=== PATIENT | female | born 1950 | race African-American/Black ===

== ENCOUNTER 2016-07-23 11:57 | Inpatient (IN) ==
--- NOTE | 2016-07-23 13:16 | Emergency Department Note ---
Arrival - Arrival Chief Complaint: Weakness Stated Complaint: weakness/unsteady gait ED Nursing Triage Note: pt to triage via wc with c/o having weakness to right leg. pt states onset this am around 0800. pt states her bp was elevated and she took her bp med and then right after she began to have weakness to right leg. Mode of Arrival: Wheelchair Limitations: No Limitations Source: Patient Time Seen by Provider: 07/23/16 12:43 - History of Present Illness HPI Narrative: 65 yo black female presents to ED with c/o right sided weakness x 5 hours. 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 She took Clonidine 0.1mg initially and symptoms improved. When they started again, she took another Clonidine, with no resolution of symptoms, so she came to ER. Onset (ago): hour(s) (five) Consistency: constant Date of Last Menstrual Period: post menopausal Allergies/Adverse Reactions: Allergies Allergy/AdvReac Type Severity Reaction Status Date / Time codeine Allergy Severe ITCHING Verified 08/24/15 09:51 meperidine [From Demerol] Allergy Severe ITCHING Verified 08/24/15 09:51 Zolpidem [From Ambien] Allergy Severe Hallucinati Verified 08/24/15 09:51 ng Home Medications: Home Medications Medication Instructions Recorded Confirmed Type Clorazepate [Tranxene] 3.75 mg PO BID 07/23/16 07/23/16 History Estradiol [Estradiol Tab] 0.5 mg PO DAILY 07/23/16 07/23/16 History Magnesium Oxide [Magnesium] 400 mg PO DAILY 07/23/16 07/23/16 History Methocarbamol Tab [Robaxin Tab] 750 mg PO TID 07/23/16 07/23/16 History Omeprazole [Prilosec] 20 mg PO DAILY 07/23/16 07/23/16 History Potassium Chloride 20 meq PO BID 07/23/16 07/23/16 History Valsartan/Hydrochlorothiazide 1 each PO DAILY 07/23/16 07/23/16 History [Diovan Hct 320-25 mg Tablet] Review of System - Review of System 12 point system: reviewed and no additional remarkable complaints except as stated - Review of System Constitutional: Present: weakness (right side) Eyes: Present: pain Cardiovascular: Present: other (murmur) Neurological: Present: weakness (right side), abnormal gait, other (unable to write correctly) Medical,Surgical,& Family Hx - Medical History Cardio: History of: Hypertension (+ heart murmur ) Psychological: History of: Anxiety Disorders Gastrointestinal: History of: GERD - Social History Smoking Status: Never smoker Frequency of Alcohol Use: None Type of Drug Use: None Exam Vital Signs: Vital Signs Temperature 97.5 F L 07/23/16 12:05 Pulse Rate 54 L 07/23/16 12:05 Respiratory Rate 17 07/23/16 12:05 Blood Pressure 142/81 07/23/16 12:05 O2 Sat by Pulse Oximetry 97 07/23/16 12:05 - General General appearance: alert, anxious - Head Head exam: Present: atraumatic, normocephalic - Eye Eye exam: Present: EOMI, other (pupils unequal/sluggish response from left) - ENT ENT exam: Present: normal exam - Neck Neck exam: Present: normal inspection, full ROM - Chest Chest inspection: Present: normal inspection, symmetric chest wall rise - Respiratory Respiratory exam: Present: normal lung sounds bilaterally - Cardiovascular Cardiovascular exam: Present: regular rate, normal rhythm, murmur - Abdominal Exam Abdominal exam: Present: soft, normal bowel sounds - Extremities Exam Extremities exam: Present: normal inspection, normal capillary refill, other ( weakness of right upper and lower extremity, abnormal gait, abnormal handwriting ) - Back Exam Back exam: Present: normal inspection - Neurological Exam Neurological exam: Present: alert, oriented X3, CN II-XII intact. Absent: normal gait - Expanded Neurological Exam Cranial nerves: EOM function (II, III, IV, ): Normal, facial sensation (V): Normal, facial palsy (VII): Normal, spinal accessory function (XI): Normal, tongue deviation (XII): Normal Cerebellar function: finger to nose: Normal, heel to staples: Abnormal Right Cerebellar function: ataxic gait Motor strength - LUE: 5/5 Motor strength - RUE: 4/5 Motor strength - LLE: 5/5 Motor strength - RLE: 4/5 - Psychiatric Psychiatric exam: Present: anxious - Skin Skin exam: Present: warm, dry, intact Course - Reevaluation(s) Time: 14:30 (symptoms resolved) - Consultations Time: 15:00 (hospitalist service consulted-[place]) Results - Labs CBC & BMP: 07/23/16 13:23 07/23/16 13:23 - Diagnostic Findings Procedure: CT: report reviewed by me (negative) Disposition Clinical Impression: TIA (transient ischemic attack) Case discussed with: patient Disposition: Disch/Xfer-[facility]
[2016-07-23] MEDS: SODIUM CHLORIDE 0.9% 1,000 ML IV SCH (13:40)
[2016-07-23 13:42] LABS: Basophils # 0.1 10*3/uL (0.0-0.2); Eosinophils # 0.3 10*3/uL (0.0-0.87); Eosinophils % 3.6 % (0.00-10.9); Hematocrit 31.8 VOL% (35.7-47.0); Hemoglobin 10.7 GM/DL (12.0-16.0); Immature Granulocytes % 0.3 %; Immature Granulocytes Absolute 0.02 #; Lymphocytes # 2.2 10*3/uL (1.4-4.0); Lymphocytes % 31.6 % (21.3-54.2); Mean Corpuscular HGB Conc 33.6 GM/DL (32-36); Mean Corpuscular Hemoglobin 30 PG (27-34); Mean Corpuscular Volume 90.3 FL (87-102); Monocytes # 0.5 10*3/uL (0.11-0.8); Monocytes % 7.9 % (1.7-12.7); Neutrophils # 3.8 10*3/uL (1.4-7.4); Neutrophils % 55.6 % (38.7-73.9); Platelet Count 167 T/CUMM (130-400); Red Blood Count 3.52 MC/CUMM (3.8-5.5); Red Cell Distribution Width 11.5 % (9.3-17.3); White Blood Count 6.9 T/CUMM (4-12)
--- NOTE | 2016-07-23 13:47 | CT Report ---
Referring physician: Joie Calabrese NP Exam: CT brain without contrast Date: 07/23/2016 Comparison: MRI brain 07/08/2015 Reason: Right side weakness Technique: Axial images of the head were obtained without the use of contrast. Total DLP was 914.60 mGy*cm. Findings: No hydrocephalus or midline shift is present. There is no evidence of an acute infarction, recent intracranial hemorrhage or abnormal mass effect. The osseous structures appear intact. The mastoid air cells and visualized paranasal sinuses are clear. Impression: No acute intracranial abnormality is identified. The CT exam was performed using one or more of the following dose reduction techniques: Automated exposure control and adjustment of the mA and/or kV according to patient size. PROCEDURE INTERPRETED AT [facility] DEPARTMENT OF RADIOLOGY Final Report Signed by: Dr. Nika Penny
[2016-07-23 13:52] LABS: Barbiturates Screen,Urine Negative (Negative); Benzodiazepines Screen,Urine Positive (Negative); Cannabinoid Screen,Urine Negative (Negative); Opiate Screen,Urine Positive (Negative); Phencyclidine Screen,Urine Negative (Negative)
[2016-07-23 14:07] LABS: Calcium 8.7 MG/DL (8.5-10.1); Osmolality,Calculated 288.7 MOS/KG (273-304); Potassium 3.7 MMOL/L (3.5-5.1)
[2016-07-23 14:11] LABS: Cholesterol 210 MG/DL (50-200); HDL Cholesterol 78 MG/DL (40-60); Risk Ratio 2.69; Triglycerides 106 MG/DL (2-150); Troponin I Only < 0.015 NG/ML (0.00-0.045); VLDL CHOLESTEROL 21.2 MG/DL
--- NOTE | 2016-07-23 14:39 | XRay Report ---
XR chest 1V Indication: Possible stroke/TIA Comparison: None Technique: Single frontal view of the chest Findings: Heart size appears within normal limits. No focal consolidation, pleural effusion, or pneumothorax. Osseous and surrounding soft tissue structures demonstrate no acute abnormality. IMPRESSION: No acute cardiopulmonary process demonstrated. PROCEDURE INTERPRETED AT [facility] DEPARTMENT OF RADIOLOGY Final Report Signed by: Dr Uriel Escamilla
--- NOTE | 2016-07-23 15:36 | Hospitalist History & Physical ---
<Payton Esqueda - Last Filed: 07/23/16 15:31> Assessment and Plan - Time spent with patient Time spent with patient: Less than 30 minutes (1) TIA (transient ischemic attack) Status: Acute Assessment and plan: 65-year-old -[place] female admitted by hospital medicine with possible TIA. We will keep her overnight for further evaluation. Will give IV fluids and monitor her symptoms. Further recs to follow per Dr. Ricci Current Visit: Yes (2) Hypertension Status: Acute Current Visit: Yes History of Present Illness Chief complaint: Right-sided weakness History of present illness: Ms. Dubon is a 65 year old -[place] with history of hypertension female presented to the ED with right-sided weakness. Patient states she was at work this morning and she started to feel "funny". She said that her right arm and right leg felt heavy and a coworker took her blood pressure and it was 180/96. She takes clonidine every day and so she took an extra dose and the symptoms seemed to resolve. Patient states a few hours later she got the same heavy feeling on the right side and her coworkers made her come to the emergency room. Patient states all of the symptoms have now resolved. She denies headache, dizziness, shortness of breath, chest pain, abdominal pain, or lower extremity swelling. Her workup is showing relatively normal labs and a negative CT. Upon exam, patient is neurologically intact at this time with equal strength and sensation bilateral. Patient sees Dr. Palmer for her hypertension and Dr. Porter follows her for a heart murmur. She also is a pain patient of Dr. Chavez's for a bulging disc in her lower back. She does take a half [place] and Tranxene on an as needed basis. Hospitalist has been asked to admit for further evaluation. Home Medications Medication Instructions Recorded Confirmed Type Clorazepate [Tranxene] 3.75 mg PO BID 07/23/16 07/23/16 History Estradiol [Estradiol Tab] 0.5 mg PO DAILY 07/23/16 07/23/16 History Magnesium Oxide [Magnesium] 400 mg PO DAILY 07/23/16 07/23/16 History Methocarbamol Tab [Robaxin Tab] 750 mg PO TID 07/23/16 07/23/16 History Omeprazole [Prilosec] 20 mg PO DAILY 07/23/16 07/23/16 History Potassium Chloride 20 meq PO BID 07/23/16 07/23/16 History Valsartan/Hydrochlorothiazide 1 each PO DAILY 07/23/16 07/23/16 History [Diovan Hct 320-25 mg Tablet] Allergies Allergy/AdvReac Type Severity Reaction Status Date / Time codeine Allergy Severe ITCHING Verified 08/24/15 09:51 meperidine [From Demerol] Allergy Severe ITCHING Verified 08/24/15 09:51 Zolpidem [From Ambien] Allergy Severe Hallucinati Verified 08/24/15 09:51 ng Medical,Surgical,& Family Hx - Medical History Cardio: History of: Hypertension (+ heart murmur ) Psychological: History of: Anxiety Disorders Gastrointestinal: History of: GERD - Social History Smoking Status: Never smoker Frequency of Alcohol Use: None Type of Drug Use: None Review of systems: A complete 10 system review of systems was obtained and pertinent positives and negatives are in HPI Exam - Constitutional Vitals: Period Temp Pulse Resp BP Sys/Lange Pulse Ox Last 24 Hr 97.5 F-97.5 F 54-54 - 142-142/81-81 97 Exam: Constitutional System: No distress. No tremulousness. Head: Normocephalic, atraumatic. Ears, Nose and Throat System: No evidence of Otitis or Mastoiditis. No epistaxis or discharge Eyes System: Pupils equal, round, and reactive. Extraocular muscles intact. Neck: Supple, without adenopathy, No jugular venous distention. No thyromegaly, neck mass, or prior surgery apparent. No bruit noted Respiratory System: Chest clear to auscultation. Cardiovascular System: Heart with regular rate and rhythm. 1 to 2/6 murmur. GI System: Abdomen soft, nontender. Normo active bowel sounds present. Musculoskeletal System: limbs with no pedal edema. Full distal pulses. Neurological System: No discernable sensory deficit. No aphasia Psychiatric System: Conversation is rational Results - Labs CBC & BMP: 07/23/16 13:23 07/23/16 13:23 Lab Results: I have reviewed the past 24 hour labs - Diagnostic Findings Procedure: CT: report reviewed by me (No acute process) <Luis Eduardo Ricci - Last Filed: 07/23/16 19:04> History of Present Illness History of present illness: Ms. Dubon is a 65 year old female Exam - Constitutional Vitals: Period Temp Pulse Resp BP Sys/Lange Pulse Ox Last 24 Hr 97.5 F 44-46 18-19 146-153/86-92 97 Results - Labs CBC & BMP: 07/23/16 13:23 07/23/16 13:23
[2016-07-23] MEDS ORDERED: ENOXAPARIN 40 MG/0.4 ML SYRINGE SUBCUT SCH (18:10)
[2016-07-23] MEDS ORDERED: ONDANSETRON 4 MG/2 ML VIAL IV PRN (18:10)
[2016-07-23] MEDS: PANTOPRAZOLE 40 MG TABLET PO SCH (19:03)
[2016-07-23] MEDS ORDERED: NIFEdipine 10 MG CAPSULE PO PRN (19:07)
[2016-07-23] MEDS: METHOCARBAMOL 750 MG TABLET PO SCH (20:47)
[2016-07-23] MEDS: POTASSIUM CHLORIDE 20 MEQ TABLET PO SCH (20:47)
[2016-07-23] MEDS: CLORAZEPATE 3.75 MG TABLET PO SCH (20:48)
[2016-07-24] MEDS: SODIUM CHLORIDE 0.9% 1,000 ML IV SCH (06:53)
[2016-07-24 07:24] LABS: Basophils # 0.1 10*3/uL (0.0-0.2); Basophils % 0.8 % (0.0-0.8); Eosinophils # 0.2 10*3/uL (0.0-0.87); Eosinophils % 3.5 % (0.00-10.9); Hematocrit 30.9 VOL% (35.7-47.0); Hemoglobin 10.4 GM/DL (12.0-16.0); Immature Granulocytes % 0.5 %; Immature Granulocytes Absolute 0.03 #; Lymphocytes % 32.6 % (21.3-54.2); Mean Corpuscular HGB Conc 33.7 GM/DL (32-36); Mean Corpuscular Hemoglobin 30 PG (27-34); Mean Platelet Volume 11.5 FL (9.6-12.0); Monocytes # 0.5 10*3/uL (0.11-0.8); Neutrophils # 3.4 10*3/uL (1.4-7.4); Neutrophils % 54.6 % (38.7-73.9); Platelet Count 153 T/CUMM (130-400); Red Blood Count 3.51 MC/CUMM (3.8-5.5); Red Cell Distribution Width 11.6 % (9.3-17.3); White Blood Count 6.3 T/CUMM (4-12)
[2016-07-24 08:02] LABS: Albumin 3.6 G/DL (3.4-5.0); Bilirubin,Total 1.1 MG/DL (0.2-1.0); Calcium 9.2 MG/DL (8.5-10.1); Magnesium 2.1 MG/DL (1.8-2.4); Osmolality,Calculated 290.6 MOS/KG (273-304); Potassium 3.9 MMOL/L (3.5-5.1); Total Protein 6.6 G/DL (6.4-8.3)
[2016-07-24] MEDS: POTASSIUM CHLORIDE 20 MEQ TABLET PO SCH ×2 (09:08→20:21)
[2016-07-24] MEDS: ESTRADIOL 1 MG TABLET PO SCH (09:08)
[2016-07-24] MEDS: MAGNESIUM OXIDE 400 MG TABLET PO SCH (09:08)
[2016-07-24] MEDS: PANTOPRAZOLE 40 MG TABLET PO SCH (09:08)
[2016-07-24] MEDS: CLORAZEPATE 3.75 MG TABLET PO SCH ×2 (09:08→20:22)
[2016-07-24] MEDS: VALSARTAN/HCTZ 160-12.5 MG TABLET PO SCH (09:08)
[2016-07-24] MEDS: METHOCARBAMOL 750 MG TABLET PO SCH ×3 (09:08→20:21)
--- NOTE | 2016-07-24 11:43 | Magnetic Resonance Report ---
MRI brain without and with contrast Indication: Right lower extremity weakness Comparison: None available Technique: Axial sagittal and coronal imaging of the brain is performed without and with intravenous contrast. T1, T2, FLAIR and diffusion weighted sequences are performed. Contrast dose is 15 cc [place]. Findings: Faint restricted diffusion is seen in the left periventricular white matter slightly posterior. This has minimal signal changes on the T2-weighted sequences. No other evidence of restricted diffusion seen. No evidence of intracranial hemorrhage, mass, mass effect or midline shift is seen. The brain parenchyma has normal signal and differentiation. The ventricles and cisterns are appropriate in caliber. Posterior fossa, mid brain and pituitary gland appear within normal limits. No evidence of cranial or skull base abnormality seen. No areas of abnormal enhancement are present on the postcontrast images when compared to the precontrast study Impression: Suggestion of faint restricted diffusion in the left periventricular white matter with minimal changes on the T2-weighted sequences, could indicate small infarct. PROCEDURE INTERPRETED AT [facility] DEPARTMENT OF RADIOLOGY Final Report Signed by: Dr. Chuckie Murillo
--- NOTE | 2016-07-24 14:12 | Neurology Consult Note ---
History of Present Illness History of present illness: Ms. Dubon is a 65 year old right-handed -[place] lady with history of hypertension, chronic lower back pain presented to the ED with sudden onset of right-sided weakness. Patient states she was at work yesterday morning and she started to feel "funny". She said that her right arm and right leg felt heavy and a coworker took her blood pressure and it was 180/96. She takes clonidine every day and so she took an extra dose and the symptoms seemed to resolve. Patient states a few hours later she got the same heavy feeling on the right side and her coworkers made her come to the emergency room. Patient states all of the symptoms have now resolved. She denies headache, dizziness, shortness of breath, chest pain, abdominal pain, or lower extremity swelling. Patient sees Dr. Palmer for her hypertension and Dr. Porter follows her for a heart murmur. She also is a pain patient of Dr. Chavez'ede for a bulging disc in her lower back. She does take a half [place] and Tranxene on an as needed basis. MRI of the brain revealed a small acute subcortical lacunar infarct in the left. She has slightly abnormal lipid panel. Home Medications Medication Instructions Recorded Confirmed Type Clorazepate [Tranxene] 3.75 mg PO BID 07/23/16 07/23/16 History Estradiol [Estradiol Tab] 0.5 mg PO DAILY 07/23/16 07/23/16 History Magnesium Oxide [Magnesium] 400 mg PO DAILY 07/23/16 07/23/16 History Methocarbamol Tab [Robaxin Tab] 750 mg PO TID 07/23/16 07/23/16 History Omeprazole [Prilosec] 20 mg PO DAILY 07/23/16 07/23/16 History Potassium Chloride 20 meq PO BID 07/23/16 07/23/16 History Valsartan/Hydrochlorothiazide 1 each PO DAILY 07/23/16 07/23/16 History [Diovan Hct 320-25 mg Tablet] Allergies Allergy/AdvReac Type Severity Reaction Status Date / Time codeine Allergy Severe ITCHING Verified 08/24/15 09:51 meperidine [From Demerol] Allergy Severe ITCHING Verified 08/24/15 09:51 Zolpidem [From Ambien] Allergy Severe Hallucinati Verified 08/24/15 09:51 ng 12 point system: reviewed and no additional remarkable complaints except as stated Medical,Surgical,& Family Hx - Medical History Cardio: History of: Hypertension (+ heart murmur ) Psychological: History of: Anxiety Disorders Gastrointestinal: History of: GERD, GI Problems (IBS) Musculoskeletal: Comment Only: Musculoskeletal Problems ([place]) - Surgical History Thoracic Surgeries: Patient denies;: Lobectomy Abdominal Surgeries: Patient denies: Abdominal Surgery, Appendectomy, Cholecystectomy, Colonoscopy , Gastric Bypass Surgery, EGD, Hernia Repair - Family History Family History: Denies;: Family Anesthesia Reaction, Family Cancer, Family Diabetes, Family Heart Disease, Family Hematology, Family Hypertension, Family Psychiatric Problems, Family Stroke - Social History Smoking Status: Never smoker Frequency of Alcohol Use: None Type of Drug Use: None Exam - Constitutional Vitals: Period Temp Pulse Resp BP Sys/Lange Pulse Ox Last 24 Hr 97.4 F-98.8 F 44-60 16-19 127-153/68-92 97-100 Exam: GENERAL: Patient is in no acute distress. NECK: Neck is supple. There is no JVD. No carotid bruits present. No thyroid masses. CVS: First and second heart sounds are normal. There is no S3 present. Regular rate and rhythm. RESPIRATORY: Lungs are clear to auscultation without any rales or rhonchi. ABDOMEN: Soft and non-tender. Bowel sounds are present. There is no hepatosplenomegaly. EXT: There is no palpable edema. Peripheral pulses are present. Skin: No rashes Central Nervous system: General: Alert, awake and Oriented x 3 Speech: Fluent Comprehension: Intact and normal Facial expressions: Normal Cranial Nerves: CN1/Olfactory: Normal CN II/ Optic: Normal, Visual Barrera unreliable CN III, and : SCARLET & EOMI CN V: Normal & intact CN VII: face is symmetric CNVIII: Normal CN XI/X/XI/XII: Intact and Normal Motor: Bulk and Tone is normal. Strength in the right 4+/5 Strength in the left 5/5 Sensory: Decreased for all the modalities of PP, LT and temp sense Reflexes: 1+ and symmetrical Cerebellar function: Normal finger to nose and heel to staples testing. Toes: Equivocal Gait: Normal heel to heel and toe to toe and tandem walk. Results - Labs CBC & BMP: 07/24/16 06:55 07/24/16 06:55 Assessment and Plan (1) Acute CVA (cerebrovascular accident) Status: Acute Assessment and plan: Start and continue aspirin 325 mg p.o. daily Carotid ultrasound Echo PT and OT Start and continue Prozac 20 mg p.o. daily Current Visit: Yes (2) Hyperlipidemia Status: Acute Assessment and plan: Crestor 10 mg p.o. daily Current Visit: Yes (3) Hypertension Status: Chronic Assessment and plan: Continue current medications. Check vitals per routine Current Visit: Yes
[2016-07-24] MEDS: FLUoxetine 20 MG CAPSULE PO SCH (14:46)
[2016-07-24] MEDS: ASPIRIN EC 325 MG TABLET PO SCH (14:47)
--- NOTE | 2016-07-24 15:08 | Hospitalist Progress Note ---
Assessment and Plan (1) Acute CVA (cerebrovascular accident) Status: Acute Assessment and plan: The patient has a small lacunar infarction probably on account of atherosclerosis. Dr. Manpreet Ross has recommended aspirin Prozac and Crestor. Will check carotid Doppler and echocardiogram. Anticipate discharge home in the morning. Current Visit: Yes (2) Hypertension Status: Chronic Current Visit: Yes Qualifiers: Hypertension type: essential hypertension Qualified Code(s): I10 - Essential (primary) hypertension (3) Hyperlipidemia Status: Acute Current Visit: Yes Qualifiers: Hyperlipidemia type: mixed hyperlipidemia Qualified Code(s): E78.2 - Mixed hyperlipidemia Hospitalist: Subjective Interval history: The patient is more fluent today and her gait disturbance is less pronounced. She appears to have had a s lacunar infarct which might be on account of her underlying hypertension. Dr. Manpreet Ross has recommended that she take aspirin Prozac and Crestor. Exam - Constitutional Vitals: Period Temp Pulse Resp BP Sys/Lange Pulse Ox Last 24 Hr 97.4 F-98.8 F 44-60 16-19 127-153/68-92 97-100 General appearance: no acute distress - Head Head exam: Present: normocephalic - Respiratory Respiratory exam: Present: clear to auscultation bilaterally - Cardiovascular Cardiovascular exam: Present: regular rate and rhythm Results - Labs CBC & BMP: 07/24/16 06:55 07/24/16 06:55 Lab Results: I have reviewed the past 24 hour labs - Diagnostic Findings Procedure: MRI: report reviewed by me (Small lacunar infarct on the left)
--- NOTE | 2016-07-24 16:43 | ECHO Report ---
Lucille Dubon Exam Date: 07/24/2016 15:31 Referring Physician: Technologist: Sirisha Donahue RDCS Age: 65 Ht (in): Wt (lb): Gender: F Exam Location: [facility] Echo Indications: Acute CVA, Right sided weakness, Essential (primary) hypertension, Chronic lower back pain, Cardiac murmur, unspecified, Hyperlipidemia, unspecified BP: / HR: Rhythm: Sinus Technical Quality: Good IMPRESSIONS Mild to moderate left ventricular hypertrophy. Left ventricular ejection fraction is estimated at 65 %. Findings suggestive of left ventricular diastolic dysfunction. Mild atrial enlargement in apical view (elongated LA). Mildly thickened mitral valve with mild mitral regurgitation. Aortic valve sclerosis. Trace to mild tricuspid valve regurgitation. Tricuspid regurgitation velocities suggest a PAP of 46 mmHg. Mild pulmonary valve regurgitation. No obvious embolic source. No mass or thrombus seen. MEASUREMENTS (Male / Female) Normal Values 2D ECHO LV Diastolic Diameter PLAX 4.0 cm 4.2 - 5.9 / 3.9 - 5.3 cm LV Systolic Diameter PLAX 2.3 cm LV Fractional Shortening PLAX 43.5 % IVS Diastolic Thickness 1.1 cm 0.6 - 1.0 / 0.6 - 0.9 cm LVPW Diastolic Thickness 1.1 cm 0.6 - 1.0 / 0.6 - 0.9 cm RV Internal Dim ED PLAX 2.1 cm Aortic Root Diameter 3.5 cm LA Systolic Diameter LX 3.1 cm 3.0 - 4.0 / 2.7 - 3.8 cm DOPPLER TR Peak Velocity 299.0 cm/s TR Peak Gradient 35.8 mmHg FINDINGS Left Ventricle Normal left ventricular cavity size. Mild to moderate left ventricular hypertrophy. Left ventricular ejection fraction is estimated at 65 %.Findings suggestive of left ventricular diastolic dysfunction. Right Ventricle The right ventricle is normal in size and function. Right Atrium The right atrium is normal in size. Left Atrium Mild atrial enlargement in apical view (elongated LA). Mitral Valve Mildly thickened mitral valve with mild mitral regurgitation. Aortic Valve Aortic valve sclerosis. There is no aortic regurgitation. Tricuspid Valve Morphologically normal tricuspid valve. Trace to mild tricuspid valve regurgitation. Tricuspid regurgitation velocities suggest a PAP of 46 mmHg. Pulmonic Valve Morphologically normal pulmonic valve. Mild pulmonary valve regurgitation. Pericardium Normal pericardium without effusion. Aorta Normal ascending aorta dimension. Vernon Soliz MD (Electronically Signed) Final Date: 24 July 2016 16:42
--- NOTE | 2016-07-24 16:45 | Ultrasound Report ---
US carotid duplex BI Indication: New stroke. Comparison: None. Technique: Multiple longitudinal and transverse real-time sonographic images of the bilateral carotid arterial systems are obtained with grayscale, spectral, and color Doppler analysis. Findings: Peak systolic velocities within the right CCA, proximal ICA, and distal ICA are 41, 34, and 38 cm/s respectively. Peak systolic velocities within the left CCA, proximal ICA, and distal ICA are 36, 31, and 64 cm/s respectively. ICA/CCA ratios on the right and left are 0.9 and 1.8 respectively. Antegrade flow demonstrated within the bilateral vertebral arteries. Grayscale imaging demonstrates mild bilateral atherosclerotic plaque.. IMPRESSION: No convincing sonographic evidence of significant (50% or greater) narrowing of either cervical internal carotid artery. NASCET criteria utilized. PROCEDURE INTERPRETED AT [facility] DEPARTMENT OF RADIOLOGY Final Report Signed by: Dr Uriel Escamilla
[2016-07-24] MEDS: ROSUVASTATIN 10 MG TABLET PO SCH (20:21)
[2016-07-24] MEDS: CARVEDILOL 3.125 MG TABLET PO SCH (20:21)
--- NOTE | 2016-07-25 08:23 | Discharge Summary ---
Hospital Course - Hospital Course Hospital Course: The patient was admitted to the hospital with right leg weakness, dysarthria, and very mild expressive aphasia. She had some right upper extremity dysmetria as well. The patient had MRI scan the following day and was found to have a left cortical tiny stroke which is in the area predicted by her symptoms. This lacunar infarction was diagnosed by Dr. Manpreet Ross and his consultation. Echocardiogram revealed left ventricular hypertrophy with mild diastolic dysfunction consistent with incompletely treated essential hypertension. The patient has been reluctant to keep her blood pressure under optimal control despite previous reassurances by Dr. Laureano. The patient was seen by Dr. Soliz for reevaluation of high blood pressure during hospitalization. He recommended adding Coreg to her regimen and we are going to encourage her to adhere to that advice. The patient will follow up with Dr. Porter for further evaluation as an outpatient. On the date of discharge, the chest is clear, abdomen soft, extremities without edema. - Time spent with patient Time with patient DS: Greater than 30 minutes Diagnosis - Discharge Diagnosis (1) Acute CVA (cerebrovascular accident) Status: Acute (2) Hypertension Status: Chronic (3) Hyperlipidemia Status: Chronic Discharge Plan - Discharge Data Disposition: Disch To Home/Self Care Condition at Discharge: Stable Discharge Diet: heart healthy Activity: resume usual activities as tolerated - Discharge Medications New Aspirin EC Tab 325 mg PO DAILY #100 tablet FLUoxetine [PROzac] 20 mg PO DAILY #60 capsule Rosuvastatin [Crestor] 10 mg PO DAILY #60 tablet Carvedilol [Coreg] 3.125 mg PO BID #120 tablet Continue Methocarbamol Tab [Robaxin Tab] 750 mg PO TID Potassium Chloride 20 meq PO BID Magnesium Oxide [Magnesium] 400 mg PO DAILY Omeprazole [Prilosec] 20 mg PO DAILY Estradiol [Estradiol Tab] 0.5 mg PO DAILY Valsartan/Hydrochlorothiazide [Diovan Hct 320-25 mg Tablet] 1 each PO DAILY Clorazepate [Tranxene] 3.75 mg PO BID - Follow Up or Referral Follow Up: Constanza Porter MD [Physician] - 1 Month - Forms/Instructions Exam - Constitutional Vitals: Period Temp Pulse Resp BP Sys/Lange Pulse Ox Last 24 Hr 97.5 F-99.4 F 56-70 16-19 126-154/68-97 98-100 DS: Provider Date of admission: 07/23/16 15:27 Primary care physician: . No PCP Attending physician on admission: Luis Eduardo Ricci MD Consults: 07/23/16 18:10 Consult to Physician [CONS] Routine Comment: leg weakness Consulting Provider: Bjorn Garduno Person Notified: LUDIN Date Notified: 07/24/16 Time Notified: 09:07 07/23/16 19:05 Consult to Physician [CONS] Routine Comment: hypertension Consulting Provider: Constanza Porter Person Notified: DUGLAS Date Notified: 07/24/16 Time Notified: 09:08 07/24/16 14:33 PT [Consult to Physical Therapy] [CONS] Routine Reason for Physical Therapy: Evaluate and Treat Consult Comment: new CVA 07/24/16 14:34 OT [Consult to Occupational Therapy] [CONS] Routine Reason for Occupational Therapy: Evaluate and Treat Consult Comment: new stroke Discharging clinician: Luis Eduardo Ricci MD
--- NOTE | 2016-07-25 08:42 | EKG Report ---
Stationary ECG Study [facility] Test Date: 07/25/2016 7:40:19 AM Pat Name: AMANDA FERGUSON Department: Room: 539 Gender: F Trap Puller: JOVAN : 1950 Requested by: Vernon Soliz Order Number: [id number] Reading MD: AYDEN LEBRON Intervals [place] Rate: 51 P: 52 IL: 174 QRS: 63 QRSD: 94 T: 50 QT: 432 QTc: 408 Interpretive Statements SINUS BRADYCARDIA Electronically Signed On 07-26-16 21:04:41 CDT by AYDEN LEBRON [email or web address]
[2016-07-25] MEDS: METHOCARBAMOL 750 MG TABLET PO SCH (09:24)
[2016-07-25] MEDS: CLORAZEPATE 3.75 MG TABLET PO SCH (09:25)
[2016-07-25] MEDS: POTASSIUM CHLORIDE 20 MEQ TABLET PO SCH (09:25)
[2016-07-25] MEDS: FLUoxetine 20 MG CAPSULE PO SCH (09:25)
[2016-07-25] MEDS: VALSARTAN/HCTZ 160-12.5 MG TABLET PO SCH (09:25)
[2016-07-25] MEDS: ESTRADIOL 1 MG TABLET PO SCH (09:25)
[2016-07-25] MEDS: CARVEDILOL 3.125 MG TABLET PO SCH (09:25)
[2016-07-25] MEDS: PANTOPRAZOLE 40 MG TABLET PO SCH (09:25)
[2016-07-25] MEDS: MAGNESIUM OXIDE 400 MG TABLET PO SCH (09:26)
[2016-07-25] MEDS: ASPIRIN EC 325 MG TABLET PO SCH (09:26)
[2016-07-25] MEDS: ROSUVASTATIN 10 MG TABLET PO SCH (09:28)
[2016-07-25 12:53] VITALS: BP 130/68
--- NOTE | 2016-07-25 14:22 | Cardiology Consult Note ---
ISilvana April RN, am scribing for, and in the presence of, Vernon Soliz MD 14:21. Assessment and Plan - Time spent with patient Time spent with patient: Greater than 30 minutes (Due to assessment, planning, and documentation) (1) Hypertension Status: Chronic Assessment and plan: Patient has had elevated blood pressure and a lacunar stroke. She has had right leg weakness which is now resolved. She needs her blood pressure under better control Plan/recommendation: I discussed with the patient about options of treatment. She did not take Norvasc because of edema She is on Diovan HCTZ. We will start carvedilol 3.25 mg p.o. 2 times daily. Will hold if pulse less than 55 the dose. Check your blood pressure and pulse twice a day, record it, and call it to us in 2-4 weeks or bring it to the next clinic appointment for me to review. She will follow with Dr. Palmer as is scheduled She will follow Dr. Porter on 10/08/16 as schedule. 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 She agrees with the plan. Thank you for allowing me to participate in this patient's care I , Dr. Vernon Soliz, on 07/24/16 was involved with the patient's care, including interview, examination, and management. However I am documenting the note at this point in time. Qualifiers: Hypertension type: essential hypertension Qualified Code(s): I10 - Essential (primary) hypertension (2) TIA (transient ischemic attack) Status: Acute History of Present Illness - Data of Consult Patient: known to practice within the last 3 years Consult date: 07/23/16 Requesting Physician: Luis Eduardo Ricci - Consult Narrative Reason for consult: Hypertension History of present illness: Ms. Dubon is a 65 year old female who is routinely followed by Dr. Porter for a heart murmur. She had nuclear stress test done at Dr. Porter 's office September 22, 2015 that showed no evidence of reversible ischemia, and she had an echo done July 19, 2015 with ejection fraction 55%. She also has a history of hypertension and polyps. She is unable to take Norvasc because it causes edema. Surgical history includes hysterectomy. Family history includes siblings with hypertension. She reports she is a lifetime non-smoker. Patient reports she was at work yesterday and while writing she had no control of her right arm and her right leg felt like rubber. Her blood pressure was checked and it was 180/90, she took clonidine and begin to feel better. She states her blood pressure on recheck was 160 over something. Later yesterday she began to feel worse and her right arm and leg was very weak and she like she had no control of them. She also felt like she was having to search for her words, not able to speak what she was thinking. She presented to the emergency department for further evaluation of possible TIA. We have been asked to see regarding her blood pressure. She denies having any chest pain, shortness of breath, or dizziness. She states she does have palpitations and dyspnea from time to time but none currently. She feels her weakness has improved to her right extremities, especially her arm. She has been able to write without difficulty this morning , but states her right leg still feels weak. Blood pressure this morning has been in the 150s over 80s. She is currently on Diovan HCT 160/12.5 daily. CC: Luis Eduardo Ricci MD - Home Medications and Allergies Home Medications: Home Medications Medication Instructions Recorded Confirmed Type Clorazepate [Tranxene] 3.75 mg PO BID 07/23/16 07/23/16 History Estradiol [Estradiol Tab] 0.5 mg PO DAILY 07/23/16 07/23/16 History Magnesium Oxide [Magnesium] 400 mg PO DAILY 07/23/16 07/23/16 History Methocarbamol Tab [Robaxin Tab] 750 mg PO TID 07/23/16 07/23/16 History Omeprazole [Prilosec] 20 mg PO DAILY 07/23/16 07/23/16 History Potassium Chloride 20 meq PO BID 07/23/16 07/23/16 History Valsartan/Hydrochlorothiazide 1 each PO DAILY 07/23/16 07/23/16 History [Diovan Hct 320-25 mg Tablet] Aspirin EC Tab 325 mg PO DAILY #100 tablet 07/25/16 Rx Carvedilol [Coreg] 3.125 mg PO BID #120 tablet 07/25/16 Rx FLUoxetine [PROzac] 20 mg PO DAILY #60 capsule 07/25/16 Rx Rosuvastatin [Crestor] 10 mg PO DAILY #60 tablet 07/25/16 Rx Allergies/Adverse Reactions: Allergies Allergy/AdvReac Type Severity Reaction Status Date / Time codeine Allergy Severe ITCHING Verified 08/24/15 09:51 meperidine [From Demerol] Allergy Severe ITCHING Verified 08/24/15 09:51 Zolpidem [From Ambien] Allergy Severe Hallucinati Verified 08/24/15 09:51 ng - Constitutional Constitutional: Present: as per HPI - EENT Eyes: Present: requires corrective lense. Absent: blurry vision Ears: Absent: decreased hearing, tinnitus Nose, mouth and throat: Present: headache(s). Absent: epistaxis, neck pain - Cardiovascular Cardiovascular: Present: dyspnea (Occasionally), palpitations (Occasionally). Absent: chest pain at rest, chest pain with activity, diaphoresis, dyspnea on exertion, edema, radiating jaw, neck or arm pain, lightheadedness, orthopnea - Respiratory Respiratory: Present: dyspnea. Absent: cough, hemoptysis, dyspnea on exertion, wheezing - Gastrointestinal Gastrointestinal: Present: constipation. Absent: abdominal pain, diarrhea, melena, nausea, vomiting - Genitourinary Genitourinary: Absent: dysuria, hematuria - Musculoskeletal Musculoskeletal: Present: back pain, muscle weakness. Absent: limited range of motion - Neurological Neurological: Present: abnormal gait, headache(s). Absent: abnormal speech, confusion, dizziness, frequent falls, syncope - Endocrine Endocrine: Present: fatigue - Hematologic/Lymphatic Hematologic/Lymphatic: Present: easy bruising. Absent: easy bleeding Medical,Surgical,& Family Hx - Medical History Cardio: History of: Hypertension (+ heart murmur ) Psychological: History of: Anxiety Disorders Gastrointestinal: History of: GERD, Polyps, GI Problems (IBS) Musculoskeletal: Comment Only: Musculoskeletal Problems (Osteopenea) - Surgical History Reproductive Surgeries: Surgical HX of;: Hysterectomy - Family History Family History: Reports;: Family Hypertension (Siblings) - Social History Smoking Status: Never smoker Have you smoked in the last 12 months: No Frequency of Alcohol Use: Rarely Type of Drug Use: None Marital Status: Single Lives With:: Alone Functional capacity: independent ambulation Physical Examination Vital Signs Temp Pulse Resp BP Pulse Ox 97.5 F L 54 L 17 142/81 97 07/23/16 12:05 07/23/16 12:05 07/23/16 12:05 07/23/16 12:05 07/23/16 12:05 General: Present: Appears Well, No Apparent Distress HEENT: Present: PERRL, Mucus Membranes Moist Neck: Present: Supple Neck, Midline Trachea, No JVD/HJR Cardiac: Present: Reg Rate and Rhythm, Audible Murmur Lungs: Present: Normal Breath Sounds, No Wheeze, Rales, Rhonchi. Absent: Oxygen Neuro: Present: Weakness (Right leg). Absent: Essential Tremor Abdomen: Present: Soft, Active Bowel Sounds, Non-Tender. Absent: Distended Skin: Present: Clear Musculoskeletal: Present: Normal Range of Motion Extremities: Present: No Edema, Normal Upper Extr. Pulses, Normal Lower Extr. Pulses Result/EKG - Labs CBC & BMP: 07/24/16 06:55 07/24/16 06:55 Lab Results: I have reviewed the past 24 hour labs Labs: Laboratory Results - last 24 hr 07/24/16 07/24/16 06:55 06:55 WBC 6.3 RBC 3.51 L Hgb 10.4 L Hct 30.9 L MCV 88.0 MCH 30 MCHC 33.7 RDW 11.6 Plt Count 153 MPV 11.5 Neut % (Auto) 54.6 Lymph % (Auto) 32.6 [place] % (Auto) 8.0 Eos % (Auto) 3.5 Baso % (Auto) 0.8 Neut # (Auto) 3.4 Lymph # (Auto) 2.0 [place] # (Auto) 0.5 Eos # (Auto) 0.2 Baso # (Auto) 0.1 Immature Gran % 0.5 Nucleated RBC % 0.0 Immature Gran # 0.03 Nucleated RBCs # 0.00 Sodium 146 H Potassium 3.9 Chloride 108 H Carbon Dioxide 29 Anion Gap 12.9 BUN 17 Creatinine 1.00 GFR Calculation 75 BUN/Creatinine Ratio 17.00 Glucose 83 Calculated Osmolality 290.6 Calcium 9.2 Magnesium 2.1 Total Bilirubin 1.10 H AST 26 ALT 22 Alkaline Phosphatase 55 Total Protein 6.6 Albumin 3.6 Globulin 3.0 Albumin/Globulin Ratio 1.2 Specialty Discharge - Follow Up or Referrals Follow up with: Constanza Porter MD [Physician] - 08/24/16 9:20 am I, Vernon Soliz MD, personally performed the services described in this documentation, ascribed by Jennifer Pina RN in my presence, and it is both accurate and complete [phone] .
--- NOTE | 2016-07-31 08:23 | Physician Query Form ---
CLICK EDIT DOCUMENT TO SELECT QUERY ANSWER --> OK --> SIGN Padma Joyce RN Clinical [facility] W) [phone] (f) [phone] [email or web address] PROVIDERS: Make your selection(s) from the choices in EACH section by typing an "x" and enter comments in the comment section. Please use your independent medical judgment in providing your response. This request does not imply that any particular answer is desired or expected. CLINICAL INDICATORS: (Providers should not edit this section) Based on documentation of "She also is a pain patient of Dr. Iglesias for a bulging disc in her lower back. She does take a half Andrews and Tranxene on an as needed basis". Please clarify the area of lower back where bulging disc is located. Based on the above, could you clarify the appropriate diagnosis, if significant , that supports the above abnormalities and additional evaluation, monitoring, and/or treatment rendered: (x ) Pt. has bulging disc of lumbar spine ( ) Pt. has bulging disc of lumbosacral spine ( ) Pt. has bulging disc of thoracic spine ( ) Pt. has bulging disc of thoracolumbar area ( ) Pt. has bulging disc of sacrococcygeal area ( ) Other, please specify: ( ) Clinically unable to determine COMMENTS: Use of terms such as suspected, likely, or probable (associated with a specific diagnosis that is being evaluated, monitored, or treated as if it exists) are acceptable and can be restated in the discharge summary if not ruled out. MTDD
== END 2016-07-25 11:25 | disposition home or self-care (01) | DRG 66 ==
LOC: N.ED 11:57 → N.EDINP 15:27 → N.5E 18:00
PROVIDERS: ADMIT Internal Medicine; ATTEND Internal Medicine

== ENCOUNTER 2020-04-12 08:02 | Observation (INO) ==
[2020-04-12] MEDS ORDERED: SODIUM CHLORIDE 0.9% 1,000 ML IV STA (08:10)
[2020-04-12] MEDS ORDERED: CALCIUM CARBONATE CHEW 500 MG TABLET PO PRN (08:54)
[2020-04-12] MEDS ORDERED: guaiFENesin/DM ER 600-30 MG TABLET PO PRN (08:54)
[2020-04-12] MEDS ORDERED: MAGNESIUM SULF RIDER 2 GM in PREMIX 1 EACH IV PRN (08:54)
[2020-04-12] MEDS ORDERED: LACTULOSE 20 GM/30 ML UDCUP PO PRN (08:54)
[2020-04-12] MEDS ORDERED: MAGNESIUM SULF RIDER 4 GM in PREMIX 1 EACH IV PRN (08:54)
[2020-04-12] MEDS ORDERED: ACETAMINOPHEN 325 MG TABLET PO PRN (08:54)
[2020-04-12] MEDS ORDERED: SIMETHICONE CHEW 125 MG TABLET PO PRN (08:54)
[2020-04-12] MEDS ORDERED: BISACODYL 5 MG TABLET PO PRN (08:54)
[2020-04-12] MEDS ORDERED: ALUMINUM/MAGNES/SIMETH MAX STR 30 ML UDCUP PO PRN (08:54)
[2020-04-12] MEDS ORDERED: ONDANSETRON 4 MG/2 ML VIAL IV PRN (08:54)
[2020-04-12] MEDS ORDERED: POTASSIUM CHLORIDE 20 MEQ TABLET PO PRN (09:01)
[2020-04-12] MEDS: PANTOPRAZOLE 40 MG TABLET PO SCH (09:05)
[2020-04-12 09:12] LABS: Basophils # 0.1 10*3/uL (0.0-0.2); Basophils % 1.2 % (0.0-0.8); Eosinophils # 0.3 10*3/uL (0.0-0.87); Eosinophils % 3.7 % (0.00-10.9); Hematocrit 28.8 VOL% (35.7-47.0); Hemoglobin 9.5 GM/DL (12.0-16.0); Immature Granulocytes % 0.9 %; Immature Granulocytes Absolute 0.06 #; Lymphocytes # 1.7 10*3/uL (1.4-4.0); Lymphocytes % 24.7 % (21.3-54.2); Mean Corpuscular Volume 86.2 FL (87-102); Mean Platelet Volume 10.3 FL (9.6-12.0); Monocytes % 10.7 % (1.7-12.7); Neutrophils % 58.8 % (38.7-73.9); Platelet Count 192 T/CUMM (130-400); Red Blood Count 3.34 MC/CUMM (3.8-5.5); Red Cell Distribution Width 13.2 % (9.3-17.3); White Blood Count 6.8 T/CUMM (4-12)
[2020-04-12 09:33] LABS: Albumin 3.4 G/DL (3.4-5.0); Bilirubin,Total 0.4 MG/DL (0.2-1.0); Calcium 8.8 MG/DL (8.5-10.1); Osmolality,Calculated 280.4 MOS/KG (273-304); Total Protein 6.8 G/DL (6.4-8.3)
[2020-04-12] MEDS ORDERED: DICLOFENAC 1% GEL 100 GM TUBE TOP PRN (09:42)
[2020-04-12] MEDS: DICYCLOMINE 10 MG CAPSULE PO SCH ×3 (16:49→21:51)
[2020-04-12] MEDS ORDERED: PNEUMOCOCCAL VACCINE (13 VALENT) 0.5 ML SYRINGE IM ONE (17:25)
[2020-04-12 19:02] LABS: Troponin I < 0.015 NG/ML (0.00-0.045)
[2020-04-12] MEDS ORDERED: hydrALAZINE 20 MG/1 ML VIAL IV PRN (22:23)
[2020-04-13 05:50] LABS: Basophils # 0.1 10*3/uL (0.0-0.2); Basophils % 1.1 % (0.0-0.8); Eosinophils # 0.2 10*3/uL (0.0-0.87); Eosinophils % 3.2 % (0.00-10.9); Hematocrit 29.4 VOL% (35.7-47.0); Hemoglobin 9.8 GM/DL (12.0-16.0); Immature Granulocytes % 0.7 %; Immature Granulocytes Absolute 0.05 #; Lymphocytes # 1.6 10*3/uL (1.4-4.0); Lymphocytes % 22.6 % (21.3-54.2); Mean Corpuscular HGB Conc 33.3 GM/DL (32-36); Mean Corpuscular Volume 84.7 FL (87-102); Mean Platelet Volume 10.5 FL (9.6-12.0); Monocytes % 9.7 % (1.7-12.7); Neutrophils % 62.7 % (38.7-73.9); Platelet Count 197 T/CUMM (130-400); Red Blood Count 3.47 MC/CUMM (3.8-5.5); Red Cell Distribution Width 13.2 % (9.3-17.3); White Blood Count 7.1 T/CUMM (4-12)
[2020-04-13 06:12] LABS: Osmolality,Calculated 282.3 MOS/KG (273-304)
[2020-04-13 08:57] VITALS: BP 141/86
[2020-04-13] MEDS: PANTOPRAZOLE 40 MG TABLET PO SCH (08:58)
[2020-04-13] MEDS ORDERED: ROSUVASTATIN 10 MG TABLET PO SCH (09:00)
[2020-04-13] MEDS ORDERED: ASPIRIN EC 325 MG TABLET PO SCH (09:00)
[2020-04-13] MEDS ORDERED: LINACLOTIDE 145 MCG CAPSULE PO SCH (09:00)
[2020-04-13] MEDS ORDERED: OLMESARTAN 20 MG TABLET PO SCH (09:00)
[2020-04-13] MEDS: DICYCLOMINE 10 MG CAPSULE PO SCH (09:03)
[2020-04-13 09:25] LABS: Folate 23.6 NG/ML (5.4-24.0)
[2020-04-19] MEDS ORDERED: ERGOCALCIFEROL 50,000 UNIT CAPSULE PO SCH (09:00)
== END 2020-04-13 12:30 | disposition home or self-care (01) ==
LOC: EDUNIT# → EDBD → N.EDINP 08:02 → N.ED 08:02 → N.TELES 15:57
PROVIDERS: ADMIT Internal Medicine Cardiovascular Disease; ATTEND Internal Medicine Cardiovascular Disease